=== PATIENT | male | born 1980 | race African-American/Black ===

== ENCOUNTER → 2019-01-28 | Emergency (ER) | payer OTHER ==
[~2019-01-28] VITALS: Ht 185.4 cm; Wt 83.0 kg
== END | disposition home or self-care (01) ==
LOC: ER 11:35
DX: S91.021A Laceration with foreign body, right ankle, initial encounter (principal); W45.8XXA Other foreign body or object entering through skin, initial encounter; Y93.89 Activity, other specified; Y92.59 Other trade areas as the place of occurrence of the external cause; Y99.8 Other external cause status